=== PATIENT | female | born 1985 | race African-American/Black ===

== ENCOUNTER 2020-11-30 12:39 | Day surgery (SDC) | payer BC, SELFPAY ==
[~2020-11-30 12:39] MED LIST: IBUPROFEN 200 MG TAB PO ONE
[2020-11-30 13:15] LABS: Specific Gravity 1.025 (1.005-1.030)
[2020-11-30] MEDS ORDERED: Ringers Lactate 1,000 ML IV ONE (13:25)
[2020-11-30] MEDS ORDERED: SILVER NITRATE 1 APPL TOP ONE (14:22)
[2020-11-30] MEDS ORDERED: LIDOCAINE 1% W/EPI 1:100,000 MDV 20 ML VIAL ONE (14:22)
[2020-11-30] MEDS ORDERED: NA CHLORIDE 0.9% 2,000 ML ONE (14:22)
[2020-11-30] MEDS ORDERED: SUCCINYLCHOLINE 20 MG/ML (10 ML) IV ONE (15:56)
[2020-11-30] MEDS ORDERED: propofoL 200 MG/20 ML VIAL IV ONE (16:00)
[2020-11-30] MEDS ORDERED: MIDAZOLAM HCL 2 MG/2 ML INJ ONE (16:08)
[2020-11-30 17:21] VITALS: BP 136/49; TEMP 97; O2SAT 99
[2020-11-30] MEDS ORDERED: IBUPROFEN 200 MG TAB PO ONE ×2 (17:32→17:34)
--- NOTE | 2020-11-30 17:35 | OP ---
Date of Procedure: 11/30/2020 Surgeon: Elaine Acosta MD Preoperative Diagnosis: Menorrhagia, bilateral adnexal masses. Postoperative Diagnosis: Menorrhagia, bilateral adnexal masses. Procedures Performed: Diagnostic hysteroscopy, D and C. Anesthesia: General with LMA. Specimens: Endometrial curettings and biopsy specimen with Pipelle. Complications: No complications. Drains: No drains. Condition: Stable. Findings: Uterus sounded to 14 cm. No intracavitary masses. No irregular endometrium. The entire cavity well visualized. Indications: The patient is a 35-year-old female, who presented with heavy menstrual bleeding, refer red from Dr. Raleigh Chase, her primary care, history of Depot medroxyprogesterone use for about 8 yea rs, quit 2 years ago and progressively bleeding and pain associated with her periods have gotten much worse. She was evaluated with a transvaginal ultrasound and was found to have 2 larger bilateral ad nexal masses; however, her periods were the most acute compelling problem. Endometrial sampling, giv en the patient's morbid obesity, BMI over 70, risks of endometrial adenocarcinoma high, or atypia. S o she was counseled on her risks, the procedure, the complications including obstructive sleep apnea and intra and postoperative complications as a consequence of her obesity and related to either anest hesia and/or surgery. Procedure In Detail: After she was consented, she was taken back to OR, placed in a supine fashion o n the operating table. General anesthesia was given. The Anesthesia was consulted later on with thi s patient and evaluated there her airway; however, able to put in a laryngeal mask and give general a nesthesia. She was placed in a dorsal lithotomy position securely. Vulva, vagina, and perineum prep ped and draped in a sterile fashion. Speculum placed to expose the cervix. Anterior lip grasped wit h 2 Allis clamps. Slimline diagnostic hysteroscope was used to enter the cervical canal and under di rect visualization traverse and enter the uterine cavity. Cavity was enlarged, however, completely u ndistorted. No masses, no irregular endometrium. Both tubal ostia visualized. The entire cavity un remarkable. Scope pulled out. Sounded to 14 cm due to the location of the cervix that was very high and significant anteflexion of the uterus before I use a curette, I used an endometrial biopsy Pipel le to secure the specimen. At least 3 passes were taken and placed in a formalin cup and sent for pe rmanent pathology. Then, the #1 curette was attempted to be passed, but it was difficult to pass the cervix, so a #0 curette was passed into the uterine cavity and curettage was performed. This was al so sent for permanent pathology. All instruments were removed. Instrument, needle, and sponge count s were correct at the end of the case. The patient tolerated the procedure well. She was recovered from anesthesia and taken to PACU in stable condition. She has a 1-week followup appointment with me . We will decide about her treatment plan of action, operative findings, her pathology report and mo st likely could be referred over to a gynecological oncologist for management of her masses. Given h er morbid obesity, she has been counseled preoperatively about weight loss and she has lost about 8 p ounds since the first time she was visited us about a month ago. MITZI/OZZIE Voice ID: [id number] Report ID: [id number]
== END 2020-11-30 17:25 | disposition home or self-care (01) ==
LOC: OR 12:39
PROVIDERS: ATTEND Obstetrics & Gynecology
PROC: 0UJD8ZZ Inspection of Uterus and Cervix, Via Natural or Artificial Opening Endoscopic (ICD-10-PCS; 2020-11-30)
PROC: 0UDB7ZX Extraction of Endometrium, Via Natural or Artificial Opening, Diagnostic (ICD-10-PCS; principal; 2020-11-30 14:45)
DX: N92.0 Excessive and frequent menstruation with regular cycle (principal); R19.09 Other intra-abdominal and pelvic swelling, mass and lump; N94.6 Dysmenorrhea, unspecified; Z68.45 Body mass index [BMI] 70 or greater, adult; I10 Essential (primary) hypertension; Z20.822 Contact with and (suspected) exposure to COVID-19
CPT/HCPCS: 81025; 88305; 58558; U0003; J2704; J0330; J2250; J7120; J7030